=== PATIENT | male | born 1935 | race Caucasian/White ===

== ENCOUNTER 2016-02-26 22:05 | Inpatient (IN) | payer OTHER, BC ==
[~2016-02-26] VITALS: Ht 177.8 cm; Wt 81.0 kg
[~2016-02-26 22:05] MED LIST: ALEVE LIQUID G220 MG PO; ASPIR 8181 M1 PO; CALTRATE 600 +1 EAC1 PO; CALTRATE D PO; CIPRO500 MG PO; DOCUSATE SODIU100 MG PO; DONEPEZIL HCL23 MG PO; ENDOCET 5-3251 EACH PO; FLOMAX0.4 MG PO; IRON325 MG PO; LEVAQUIN500 MG PO; LOVASTATIN10 MG PO; LUPRON IM; MEMANTINE HCL10 MG PO; PREDNISONE5 MG PO; ROCEPHIN1 GM/50 ML IV; SIMVASTATIN10 MG PO; TYLENOL REGULA325 MG PO; WELCHOL625 MG PO; XTANDI40 MG PO; ZYTIGA250 MG PO
[2016-02-26 23:11] LABS: HEMATOCRIT 31.5 % (38.0-50.0); MCH 27.4 PG (29.0-34.0); MCHC 33.3 G/DL (30.0-36.0); MCV 82.2 FL (86-99); MEAN PLAT.VOLUME 9.6 uM^3 (9.0-12.4); RBC DIS.WIDTH-SD 53.2 % (39-53); RED BLOOD COUNT 3.83 M/uL (4.00-5.50)
[2016-02-26 23:14] LABS: PLATELET COUNT 560 K/uL (156-360); WHITE BLOOD COUNT 19.1 K/uL (4.1-10.2)
[2016-02-26 23:15] LABS: CHLORIDE 101 mEq/L (99-109); POTASSIUM 3.9 mEq/L (3.7-5.4); SODIUM 132 mEq/L (136-147)
[2016-02-26 23:17] LABS: GLUCOSE 117 mg/dL (70-99)
[2016-02-26 23:19] LABS: ANION GAP 8 MEQ/L (2-14); TOTAL BILIRUBIN 0.5 mg/dL (0.0-1.0)
[2016-02-26 23:21] LABS: ALKALINE PHOSPHATASE 221 IU/L (3-129); GFR ESTIMATE (CALCULATED) > 59 mL/min/
[2016-02-26 23:22] LABS: UREA NITROGEN (BUN) 19 mg/dL (9-23)
[2016-02-27 01:59] LABS: ADD MIUA? YES; BILIRUBIN NEGATIVE; BLOOD NEGATIVE; COLOR YELLOW ((YELLOW)); GLUCOSE (STRIP) NEGATIVE; KETONES NEGATIVE; LEUKOCYTES TRACE; NITRITE NEGATIVE; PROTEIN (STRIP) NEGATIVE; SPECIFIC GRAVITY 1.014 (1.000-1.030); UROBILINOGEN 0.2 MG/DL (0.2-1.0)
[2016-02-27 02:01] LABS: LIPASE 40 U/L (1.0-51.0)
[2016-02-27 02:39] LABS: RED BLOOD CELLS NONE SEEN /HPF (0-5); WHITE BLOOD CELLS 0-5 /HPF (0-5)
[2016-02-27 02:40] LABS: BACTERIA RARE; CALCIUM OXALATE CRYSTALS RARE; CASTS NONE SEEN /LPF; CRYSTALS PRESENT; EPITHELIAL CELLS NONE SEEN; MUCUS NONE SEEN; UCUL ADDED? NO
[2016-02-27 02:57] LABS: EOSINOPHIL (%) 1.1 % (0-5); EOSINOPHIL COUNT 0.1 K/uL (0-0.3); IMMATURE GRANULOCYTE (%) 0.3 % (0.0-0.7); IMMATURE GRANULOCYTE COUNT 0.2 K/uL; LYMPHOCYTE COUNT 1.9 K/uL (1.0-2.8); MONOCYTE (%) 7.7 % (3-12); MONOCYTE COUNT 0.6 K/uL (0-0.8); NEUTROPHIL COUNT 4.9 K/uL (1.8-6.4)
[2016-02-27 08:58] LABS: HEMATOCRIT 32.2 % (38.0-50.0); MCH 26.9 PG (29.0-34.0); MCHC 32.6 G/DL (30.0-36.0); MCV 82.6 FL (86-99); MEAN PLAT.VOLUME 9.4 uM^3 (9.0-12.4); PLATELET COUNT 540 K/uL (156-360); RBC DIS.WIDTH-CV 18.2 % (11.8-14.6); RBC DIS.WIDTH-SD 54.7 % (39-53); WHITE BLOOD COUNT 17.8 K/uL (4.1-10.2)
[2016-02-27 09:07] LABS: CHLORIDE 108 mEq/L (99-109); POTASSIUM 3.7 mEq/L (3.7-5.4); SODIUM 138 mEq/L (136-147)
[2016-02-27 09:09] LABS: GLUCOSE 93 mg/dL (70-99)
[2016-02-27 09:10] LABS: ANION GAP 7 MEQ/L (2-14)
[2016-02-27 09:13] LABS: GFR ESTIMATE (CALCULATED) > 59 mL/min/
[2016-02-27 09:14] LABS: UREA NITROGEN (BUN) 14 mg/dL (9-23)
[2016-02-27] MEDS ORDERED: BACTRIM,SEPT1 TABLET PO (10:44)
[2016-02-27 12:00] VITALS: BP 118/56
[2016-02-27 16:27] VITALS: BP 136/78
[2016-02-27 17:12] LABS: HEMATOCRIT 32.2 % (38.0-50.0); MCH 27.5 PG (29.0-34.0); MCHC 32.9 G/DL (30.0-36.0); MCV 83.6 FL (86-99); MEAN PLAT.VOLUME 9.7 uM^3 (9.0-12.4); PLATELET COUNT 555 K/uL (156-360); RBC DIS.WIDTH-CV 18.2 % (11.8-14.6); RBC DIS.WIDTH-SD 56.1 % (39-53); RED BLOOD COUNT 3.85 M/uL (4.00-5.50); WHITE BLOOD COUNT 14.9 K/uL (4.1-10.2)
[2016-02-27 19:36] VITALS: BP 139/66
[2016-02-27 21:16] LABS: METH RESISTANT S AUREUS PCR NEGATIVE (NEGATIVE)
[2016-02-27 21:19] LABS: PROBE CHECK PASS; SPECIMEN PROCESSING CONTROL PASS
[2016-02-28 00:09] VITALS: BP 120/69
[2016-02-28 04:32] VITALS: BP 121/59
[2016-02-28 08:00] VITALS: BP 126/60
[2016-02-28 12:00] VITALS: BP 115/56
[2016-02-28 16:00] VITALS: BP 132/61
[2016-02-28 21:40] VITALS: BP 120/63
[2016-02-29 08:53] VITALS: BP 127/75
[2016-02-29 12:43] VITALS: BP 115/59
[2016-02-29 16:53] VITALS: BP 123/74
[2016-02-29 21:00] VITALS: BP 118/62
[2016-02-29 23:32] VITALS: BP 124/67
[2016-03-01 04:18] VITALS: BP 142/64
[2016-03-01 06:43] LABS: EOSINOPHIL (%) 2.3 % (0-5); EOSINOPHIL COUNT 0.2 K/uL (0-0.3); IMMATURE GRANULOCYTE (%) 0.3 % (0.0-0.7); MCH 26.9 PG (29.0-34.0); MCHC 32.5 G/DL (30.0-36.0); MCV 82.8 FL (86-99); MEAN PLAT.VOLUME 9.7 uM^3 (9.0-12.4); MONOCYTE (%) 10.5 % (3-12); NEUTROPHIL COUNT 6.6 K/uL (1.8-6.4); PLATELET COUNT 540 K/uL (156-360); RBC DIS.WIDTH-CV 17.8 % (11.8-14.6); RBC DIS.WIDTH-SD 54.2 % (39-53); RED BLOOD COUNT 3.38 M/uL (4.00-5.50)
[2016-03-01 06:46] LABS: WHITE BLOOD COUNT 9.9 K/uL (4.1-10.2)
[2016-03-01 07:12] LABS: ANION GAP 5 MEQ/L (2-14); CHLORIDE 111 MEQ/L (99-109); GFR ESTIMATE (CALCULATED) > 59 mL/min/; GLUCOSE 81 mg/dL (70-99); POTASSIUM 3.9 MEQ/L (3.7-5.4); SAMPLE HEMOLYSIS CHECK 0; SAMPLE ICTERIC CHECK 0; SAMPLE LIPEMIA CHECK 0; SODIUM 143 MEQ/L (136-147); UREA NITROGEN (BUN) 11 mg/dL (9-23)
[2016-03-01 07:21] LABS: VANCOMYCIN, TROUGH 13.7 MCG/ML (10-20)
[2016-03-01 08:14] VITALS: BP 124/75
== END 2016-03-01 12:54 | disposition home or self-care (01) | DRG 699 ==
LOC: EME 22:05 → 5WEST 02-27 03:32 → EDOF 02-27 03:32 → 5WEST 02-27 16:14
PROVIDERS: Family Medicine; Hospitalist; Nurse Practitioner Adult Health; Physician Assistant
PROC: 0CJS8ZZ Inspection of Larynx, Via Natural or Artificial Opening Endoscopic (ICD-10-PCS; principal; 2016-02-29)
DX: T83.511A Infection and inflammatory reaction due to indwelling urethral catheter, initial encounter (principal); N39.0 Urinary tract infection, site not specified; E87.1 Hypo-osmolality and hyponatremia; C61 Malignant neoplasm of prostate; C79.51 Secondary malignant neoplasm of bone; C78.7 Secondary malignant neoplasm of liver and intrahepatic bile duct; G89.3 Neoplasm related pain (acute) (chronic); R13.11 Dysphagia, oral phase; N32.0 Bladder-neck obstruction; F03.90 Unspecified dementia, unspecified severity, without behavioral disturbance, psychotic disturbance, mood disturbance, and anxiety; E78.5 Hyperlipidemia, unspecified; R62.7 Adult failure to thrive; B95.62 Methicillin resistant Staphylococcus aureus infection as the cause of diseases classified elsewhere; B96.5 Pseudomonas (aeruginosa) (mallei) (pseudomallei) as the cause of diseases classified elsewhere; K59.00 Constipation, unspecified; D64.9 Anemia, unspecified
CPT/HCPCS: 71010; 74177; 80048; 80053; 80202; 81003; 83605; 83690; 85025; 85027; 87040; 87086; 87641; 92610 GN; 99281; 99285; G0378; J0692; J0696; J1644; J2405; J3370; J7030; J7050; J7512

== ENCOUNTER → 2016-03-24 | Outpatient (CLI) | payer OTHER, BC ==
[~2016-03-24] MED LIST changes: +BACTRIM,SEPT1 TABLET PO
== END | disposition home or self-care (01) ==
LOC: NUC 10:51
DX: N13.1 Hydronephrosis with ureteral stricture, not elsewhere classified (principal); C61 Malignant neoplasm of prostate
CPT/HCPCS: 78709; A9562